=== PATIENT | male | born 1980 | race Two or more races ===

== ENCOUNTER 2021-11-26 17:17 | Emergency (ER) | payer OTHER ==
[~2021-11-26] VITALS: Ht 172.7 cm; Wt 98.4 kg
[2021-11-26] MEDS ORDERED: LIPITOR40 MG PO (17:25)
[2021-11-26] MEDS ORDERED: TENORMIN50 M1 PO (17:25)
[2021-11-26] MEDS ORDERED: PROTONIX IV40 MG IV (17:25)
[2021-11-26] MEDS ORDERED: AMLODIPINE-OLM1 EAC3 PO (17:25)
[2021-11-26] MEDS ORDERED: PEPCID AC20 MG PO (20:31)
[2021-11-26] MEDS ORDERED: CARAFATE1 GM PO (20:31)
== END 2021-11-26 20:46 | disposition home or self-care (01) ==
LOC: ER 17:17
DX: K29.70 Gastritis, unspecified, without bleeding (principal)